=== PATIENT | female | born 1990 | race African-American/Black ===

== ENCOUNTER 2021-06-10 14:19 | Inpatient (IN) ==
[2021-06-10] MEDS ORDERED: VANCOMYCIN INJ 1,000 MG in SODIUM CHLORIDE 0.9% 250 ML IV STA (15:40)
[2021-06-10] MEDS ORDERED: KETOROLAC 30 MG/1 ML VIAL IV STA (15:40)
[2021-06-10] MEDS ORDERED: VANCOMYCIN INJ 1,000 MG in SODIUM CHLORIDE 0.9% 100 ML IV STA (15:50)
[2021-06-10 16:30] LABS: Basophils # 0.1 10*3/uL (0.0-0.2); Basophils % 0.6 % (0.0-0.8); Eosinophils # 0.3 10*3/uL (0.0-0.87); Eosinophils % 3.3 % (0.00-10.9); Hematocrit 43.5 VOL% (35.7-47.0); Hemoglobin 13.9 GM/DL (12.0-16.0); Immature Granulocytes % 0.5 %; Immature Granulocytes Absolute 0.04 #; Lymphocytes # 2.4 10*3/uL (1.4-4.0); Lymphocytes % 27.4 % (21.3-54.2); Mean Corpuscular Volume 98.2 FL (87-102); Mean Platelet Volume 9.9 FL (9.6-12.0); Monocytes % 8.8 % (1.7-12.7); Neutrophils % 59.4 % (38.7-73.9); Platelet Count 424 T/CUMM (130-400); Red Blood Count 4.43 MC/CUMM (3.8-5.5); Red Cell Distribution Width 13.8 % (9.3-17.3); White Blood Count 8.9 T/CUMM (4-12)
[2021-06-10 16:40] LABS: Bilirubin,Urine Negative (Negative); Blood, Urine Negative (Negative); Glucose,Urine (UA) Negative (Negative); Ketones,Urine Negative (Negative); Mucus,Urine Occasional /LPF (Occasional); Nitrite,Urine Negative (Negative); Protein,Urine Negative; Squamous Epithelial Cell,Urine Occasional /HPF (0-10); Urine Appearance CLEAR (Clear); Urine Color Yellow (Yellow); Urine Specific Gravity 1.024 (1.001-1.035)
[2021-06-10 16:49] LABS: Alanine Aminotransferase 61 U/L (13-56); Albumin 3.8 G/DL (3.4-5.0); Alkaline Phosphatase 104 U/L (45-117); Aspartate Amino Transferase 26 U/L (0-37); Bilirubin,Total < 0.39 MG/DL (0.20-1.00); Blood Urea Nitrogen 9 MG/DL (7-18); Calcium 9.6 MG/DL (8.5-10.1); Carbon Dioxide 26 MMOL/L (21-32); Estimated Glom Filtration Rate 106 ML/MIN; Glucose 93 MG/DL (74-106); Potassium 3.6 MMOL/L (3.5-5.1); Sodium 136 MMOL/L (136-145); Total Protein 8.2 G/DL (6.4-8.2)
[2021-06-10 17:26] LABS: Barbiturates Screen,Urine Negative (Negative); Benzodiazepines Screen,Urine Negative (Negative); Cannabinoid Screen,Urine Negative (Negative); Opiate Screen,Urine Negative (Negative); Phencyclidine Screen,Urine Negative (Negative)
[2021-06-10] MEDS ORDERED: ACETAMINOPHEN 325 MG TABLET PO PRN (22:37)
[2021-06-10] MEDS ORDERED: ONDANSETRON 4 MG/2 ML VIAL IV PRN (22:37)
[2021-06-11] MEDS: LACTATED RINGERS 1,000 ML IV SCH ×3 (00:52→13:26)
[2021-06-11] MEDS ORDERED: CLINDAMYCIN INJ 900 MG/50 ML PREMIX IV ONE ×2 (06:00→08:30)
[2021-06-11] MEDS: PANTOPRAZOLE 40 MG TABLET PO SCH (08:20)
[2021-06-11] MEDS ORDERED: BUPIVACAINE MPF 0.25% 30 ML VIAL ONE (10:05)
[2021-06-11] MEDS ORDERED: LIDOCAINE 1%/EPI INJ 20 ML VIAL ONE (10:05)
[2021-06-11] MEDS ORDERED: ONDANSETRON 4 MG/2 ML VIAL ONE (10:16)
[2021-06-11] MEDS ORDERED: MIDAZOLAM 2 MG/2 ML VIAL ONE (10:16)
[2021-06-11] MEDS ORDERED: fentaNYL 100 MCG/2 ML VIAL ONE (10:16)
[2021-06-11] MEDS ORDERED: propofoL 200 MG/20 ML VIAL IV ONE ×2 (10:16→11:04)
[2021-06-11] MEDS ORDERED: LIDOCAINE 2% 5 ML VIAL ONE (10:16)
[2021-06-11] MEDS ORDERED: SEVOFLURANE 1 UNIT/15 MINUTE INH ONE (11:18)
[2021-06-11] MEDS ORDERED: DEXAMETHASONE 4 MG/1 ML VIAL ONE (11:18)
[2021-06-11] MEDS ORDERED: PHENYLEPHRINE 1 MG/10 ML SYRINGE IV ONE (11:18)
[2021-06-11] MEDS: KETOROLAC 30 MG/1 ML VIAL IV SCH ×3 (12:56→22:15)
[2021-06-11] MEDS: SULFAMETHOX/TRIMETHOPRIM 800-160 MG TABLET PO SCH ×2 (17:19→21:21)
[2021-06-11] MEDS: BENZONATATE 100 MG CAPSULE PO SCH ×2 (17:19→21:21)
[2021-06-11] MEDS: ENOXAPARIN 40 MG/0.4 ML SYRINGE SUBCUT SCH (21:20)
[2021-06-11] MEDS: traZODone 50 MG TABLET PO SCH (21:21)
[2021-06-11] MEDS: HYDROmorphone 2 MG/1 ML VIAL IV PRN (21:24)
[2021-06-12] MEDS: HYDROmorphone 2 MG/1 ML VIAL IV PRN ×3 (02:48→21:11)
[2021-06-12] MEDS: KETOROLAC 30 MG/1 ML VIAL IV SCH ×4 (03:56→21:01)
[2021-06-12] MEDS: LORATADINE 10 MG TABLET PO SCH (09:39)
[2021-06-12] MEDS: PANTOPRAZOLE 40 MG TABLET PO SCH (09:39)
[2021-06-12] MEDS: BENZONATATE 100 MG CAPSULE PO SCH ×3 (09:40→21:01)
[2021-06-12] MEDS: SULFAMETHOX/TRIMETHOPRIM 800-160 MG TABLET PO SCH ×2 (09:40→21:01)
[2021-06-12] MEDS: SERTRALINE 50 MG TABLET PO SCH (10:30)
[2021-06-12] MEDS: busPIRone 10 MG TABLET PO SCH ×3 (10:30→21:01)
[2021-06-12] MEDS: ENOXAPARIN 40 MG/0.4 ML SYRINGE SUBCUT SCH (21:01)
[2021-06-12] MEDS: traZODone 50 MG TABLET PO SCH (21:01)
[2021-06-13] MEDS: HYDROmorphone 2 MG/1 ML VIAL IV PRN ×4 (00:55→20:56)
[2021-06-13] MEDS: KETOROLAC 30 MG/1 ML VIAL IV SCH ×4 (02:37→21:50)
[2021-06-13] MEDS: BENZONATATE 100 MG CAPSULE PO SCH ×3 (09:09→20:51)
[2021-06-13] MEDS: busPIRone 10 MG TABLET PO SCH ×3 (09:10→20:51)
[2021-06-13] MEDS: LORATADINE 10 MG TABLET PO SCH (09:10)
[2021-06-13] MEDS: PANTOPRAZOLE 40 MG TABLET PO SCH (09:10)
[2021-06-13] MEDS: SERTRALINE 50 MG TABLET PO SCH (09:10)
[2021-06-13] MEDS: SULFAMETHOX/TRIMETHOPRIM 800-160 MG TABLET PO SCH (09:11)
[2021-06-13] MEDS ORDERED: HYDROmorphone 2 MG/1 ML VIAL IV ONE (10:02)
[2021-06-13] MEDS: PIPERACILLIN/TAZOBACTAM 3,375 MG in SODIUM CHLORIDE 0.9% 100 ML IV SCH ×2 (11:14→21:43)
[2021-06-13] MEDS: VANCOMYCIN INJ 1,000 MG in SODIUM CHLORIDE 0.9% 250 ML IV SCH (18:05)
[2021-06-13] MEDS: traZODone 50 MG TABLET PO SCH (20:51)
[2021-06-13] MEDS: ENOXAPARIN 40 MG/0.4 ML SYRINGE SUBCUT SCH (20:52)
[2021-06-14] MEDS: HYDROmorphone 2 MG/1 ML VIAL IV PRN ×8 (01:35→22:06)
[2021-06-14] MEDS: PIPERACILLIN/TAZOBACTAM 3,375 MG in SODIUM CHLORIDE 0.9% 100 ML IV SCH ×3 (01:51→22:13)
[2021-06-14] MEDS: KETOROLAC 30 MG/1 ML VIAL IV SCH ×3 (03:28→17:50)
[2021-06-14] MEDS: VANCOMYCIN INJ 1,000 MG in SODIUM CHLORIDE 0.9% 250 ML IV SCH ×2 (05:49→17:48)
[2021-06-14 06:31] LABS: Basophils % 0.6 % (0.0-0.8); Eosinophils # 0.3 10*3/uL (0.0-0.87); Eosinophils % 4.6 % (0.00-10.9); Hematocrit 37.6 VOL% (35.7-47.0); Immature Granulocytes % 0.6 %; Immature Granulocytes Absolute 0.04 #; Lymphocytes # 2.3 10*3/uL (1.4-4.0); Lymphocytes % 36.1 % (21.3-54.2); Mean Corpuscular HGB Conc 31.1 GM/DL (32-36); Mean Corpuscular Volume 100.3 FL (87-102); Mean Platelet Volume 10.7 FL (9.6-12.0); Monocytes % 10.3 % (1.7-12.7); Neutrophils % 47.8 % (38.7-73.9); Platelet Count 374 T/CUMM (130-400); Red Blood Count 3.75 MC/CUMM (3.8-5.5); Red Cell Distribution Width 13.6 % (9.3-17.3); White Blood Count 6.3 T/CUMM (4-12)
[2021-06-14 06:35] LABS: Hemoglobin 11.7 GM/DL (12.0-16.0)
[2021-06-14 06:41] LABS: Calcium 8.5 MG/DL (8.5-10.1); Osmolality,Calculated 274.5 MOS/KG (273-304); Potassium 4.1 MMOL/L (3.5-5.1)
[2021-06-14] MEDS: busPIRone 10 MG TABLET PO SCH ×4 (09:00→22:02)
[2021-06-14] MEDS ORDERED: BUPIVACAINE MPF 0.25% 30 ML VIAL ONE (10:09)
[2021-06-14] MEDS ORDERED: LIDOCAINE 1%/EPI INJ 20 ML VIAL ONE (10:09)
[2021-06-14] MEDS ORDERED: fentaNYL 100 MCG/2 ML VIAL ONE (10:17)
[2021-06-14] MEDS ORDERED: LIDOCAINE 2% 5 ML VIAL ONE (10:17)
[2021-06-14] MEDS ORDERED: MIDAZOLAM 2 MG/2 ML VIAL ONE (10:17)
[2021-06-14] MEDS ORDERED: propofoL 200 MG/20 ML VIAL IV ONE (10:17)
[2021-06-14] MEDS ORDERED: DEXAMETHASONE 4 MG/1 ML VIAL ONE (10:32)
[2021-06-14] MEDS ORDERED: SEVOFLURANE 1 UNIT/15 MINUTE INH ONE (10:32)
[2021-06-14] MEDS ORDERED: ONDANSETRON 4 MG/2 ML VIAL ONE (10:32)
[2021-06-14] MEDS ORDERED: ONDANSETRON 4 MG/2 ML VIAL IV PRN (11:03)
[2021-06-14] MEDS: PANTOPRAZOLE 40 MG TABLET PO SCH (12:11)
[2021-06-14] MEDS: LORATADINE 10 MG TABLET PO SCH (12:11)
[2021-06-14] MEDS: SERTRALINE 50 MG TABLET PO SCH (12:11)
[2021-06-14] MEDS: BENZONATATE 100 MG CAPSULE PO SCH ×3 (12:11→22:02)
[2021-06-14] MEDS: ENOXAPARIN 40 MG/0.4 ML SYRINGE SUBCUT SCH (22:02)
[2021-06-14] MEDS: traZODone 50 MG TABLET PO SCH (22:02)
[2021-06-15] MEDS: KETOROLAC 30 MG/1 ML VIAL IV SCH ×4 (00:34→17:00)
[2021-06-15] MEDS: HYDROmorphone 2 MG/1 ML VIAL IV PRN ×2 (03:52→09:17)
[2021-06-15] MEDS: VANCOMYCIN INJ 1,000 MG in SODIUM CHLORIDE 0.9% 250 ML IV SCH (04:16)
[2021-06-15] MEDS: PIPERACILLIN/TAZOBACTAM 3,375 MG in SODIUM CHLORIDE 0.9% 100 ML IV SCH (06:14)
[2021-06-15] MEDS ORDERED: MAGNESIUM HYDROXIDE SUSP 30 ML UDCUP PO PRN (07:10)
[2021-06-15] MEDS ORDERED: DOCUSATE SODIUM 100 MG CAPSULE PO PRN (07:11)
[2021-06-15] MEDS: SULFAMETHOX/TRIMETHOPRIM 800-160 MG TABLET PO SCH ×2 (08:04→21:44)
[2021-06-15] MEDS: PANTOPRAZOLE 40 MG TABLET PO SCH (08:05)
[2021-06-15] MEDS: BENZONATATE 100 MG CAPSULE PO SCH ×3 (08:05→21:44)
[2021-06-15] MEDS: LORATADINE 10 MG TABLET PO SCH (08:05)
[2021-06-15] MEDS: SERTRALINE 50 MG TABLET PO SCH (08:05)
[2021-06-15] MEDS: busPIRone 10 MG TABLET PO SCH ×3 (08:05→21:44)
[2021-06-15] MEDS ORDERED: BISACODYL 5 MG TABLET PO ONE (15:27)
[2021-06-15] MEDS ORDERED: POLYETHYLENE GLYCOL POWDER 17 GM PACK PO PRN (15:28)
[2021-06-15] MEDS: ENOXAPARIN 40 MG/0.4 ML SYRINGE SUBCUT SCH (21:44)
[2021-06-15] MEDS: traZODone 50 MG TABLET PO SCH (21:44)
[2021-06-16] MEDS: KETOROLAC 30 MG/1 ML VIAL IV SCH ×2 (00:51→06:07)
[2021-06-16] MEDS: busPIRone 10 MG TABLET PO SCH (08:07)
[2021-06-16] MEDS: LORATADINE 10 MG TABLET PO SCH (08:07)
[2021-06-16] MEDS: SULFAMETHOX/TRIMETHOPRIM 800-160 MG TABLET PO SCH (08:07)
[2021-06-16] MEDS: BENZONATATE 100 MG CAPSULE PO SCH (08:07)
[2021-06-16] MEDS: PANTOPRAZOLE 40 MG TABLET PO SCH (08:07)
[2021-06-16] MEDS: SERTRALINE 50 MG TABLET PO SCH (08:07)
[2021-06-16 08:35] VITALS: BP 145/99
== END 2021-06-16 09:01 | disposition home or self-care (01) | DRG 385 ==
LOC: N.ED 14:19 → N.EDINP 19:08 → N.TELES 22:25
PROVIDERS: ADMIT Surgery; ATTEND Surgery

== ENCOUNTER 2021-06-21 19:57 | Inpatient (IN) ==
[2021-06-21] MEDS ORDERED: ONDANSETRON 4 MG/2 ML VIAL IV ONE (23:09)
[2021-06-21] MEDS ORDERED: MORPHINE 2 MG/1 ML SYRINGE IV STA (23:09)
[2021-06-21] MEDS ORDERED: KETOROLAC 30 MG/1 ML VIAL IV STA (23:13)
[2021-06-21] MEDS ORDERED: VANCOMYCIN INJ 1,000 MG in SODIUM CHLORIDE 0.9% 250 ML IV SCH (23:30)
[2021-06-22 00:06] LABS: Alanine Aminotransferase 36 U/L (13-56); Albumin 4.3 G/DL (3.4-5.0); Alkaline Phosphatase 100 U/L (45-117); Aspartate Amino Transferase 16 U/L (0-37); Bilirubin,Total < 0.39 MG/DL (0.20-1.00); Blood Urea Nitrogen 14 MG/DL (7-18); Carbon Dioxide 23 MMOL/L (21-32); Estimated Glom Filtration Rate 109 ML/MIN; Glucose 90 MG/DL (74-106); Osmolality,Calculated 268.2 MOS/KG (273-304); Potassium 4.1 MMOL/L (3.5-5.1); Sodium 134 MMOL/L (136-145); Total Protein 8.7 G/DL (6.4-8.2)
[2021-06-22 00:29] LABS: Basophils % 0.4 % (0.0-0.8); Eosinophils # 0.3 10*3/uL (0.0-0.87); Eosinophils % 3.3 % (0.00-10.9); Hematocrit 42.1 VOL% (35.7-47.0); Hemoglobin 13.4 GM/DL (12.0-16.0); Immature Granulocytes % 0.9 %; Immature Granulocytes Absolute 0.08 #; Lymphocytes # 3.5 10*3/uL (1.4-4.0); Lymphocytes % 38.9 % (21.3-54.2); Mean Corpuscular HGB Conc 31.8 GM/DL (32-36); Mean Corpuscular Volume 96.6 FL (87-102); Mean Platelet Volume 10.3 FL (9.6-12.0); Monocytes % 9.3 % (1.7-12.7); Neutrophils % 47.2 % (38.7-73.9); Platelet Count 600 T/CUMM (130-400); Red Blood Count 4.36 MC/CUMM (3.8-5.5); Red Cell Distribution Width 13.4 % (9.3-17.3); White Blood Count 9.1 T/CUMM (4-12)
[2021-06-22] MEDS ORDERED: ACETAMINOPHEN 325 MG TABLET PO PRN (00:37)
[2021-06-22] MEDS ORDERED: ONDANSETRON 4 MG/2 ML VIAL IV PRN (00:37)
[2021-06-22] MEDS: KETOROLAC 10 MG TABLET PO PRN ×3 (02:01→16:19)
[2021-06-22] MEDS: SODIUM CHLORIDE 0.45% 1,000 ML IV SCH ×2 (02:33→08:05)
[2021-06-22 06:03] LABS: Basophils % 0.5 % (0.0-0.8); Eosinophils # 0.3 10*3/uL (0.0-0.87); Hematocrit 38.7 VOL% (35.7-47.0); Hemoglobin 12.5 GM/DL (12.0-16.0); Immature Granulocytes % 0.9 %; Immature Granulocytes Absolute 0.07 #; Lymphocytes # 2.5 10*3/uL (1.4-4.0); Lymphocytes % 30.9 % (21.3-54.2); Mean Corpuscular HGB Conc 32.3 GM/DL (32-36); Mean Corpuscular Volume 95.3 FL (87-102); Mean Platelet Volume 10.2 FL (9.6-12.0); Monocytes % 11.5 % (1.7-12.7); Neutrophils % 52.2 % (38.7-73.9); Platelet Count 564 T/CUMM (130-400); Red Blood Count 4.06 MC/CUMM (3.8-5.5); Red Cell Distribution Width 13.3 % (9.3-17.3); White Blood Count 7.9 T/CUMM (4-12)
[2021-06-22 06:21] LABS: Albumin 3.6 G/DL (3.4-5.0); Bilirubin,Total 0.4 MG/DL (0.20-1.00); Calcium 9.3 MG/DL (8.5-10.1); Osmolality,Calculated 268.2 MOS/KG (273-304); Potassium 3.9 MMOL/L (3.5-5.1); Total Protein 7.6 G/DL (6.4-8.2)
[2021-06-22] MEDS: PANTOPRAZOLE 40 MG TABLET PO SCH (08:02)
[2021-06-22] MEDS ORDERED: VANCOMYCIN INJ 1,000 MG in SODIUM CHLORIDE 0.9% 250 ML IV SCH (12:00)
[2021-06-22] MEDS: CIPROFLOXACIN 500 MG TABLET PO SCH ×2 (12:02→20:38)
[2021-06-22] MEDS: metroNIDAZOLE 500 MG TABLET PO SCH ×2 (12:03→16:17)
[2021-06-22] MEDS: PREGABALIN 50 MG CAPSULE PO SCH ×3 (13:39→20:38)
[2021-06-22] MEDS ORDERED: MELATONIN 3 MG TABLET PO PRN (20:09)
[2021-06-22] MEDS: busPIRone 10 MG TABLET PO SCH (20:38)
[2021-06-23] MEDS: KETOROLAC 10 MG TABLET PO PRN (05:59)
[2021-06-23 08:16] VITALS: BP 107/72
[2021-06-23] MEDS: CIPROFLOXACIN 500 MG TABLET PO SCH (08:50)
[2021-06-23] MEDS: metroNIDAZOLE 500 MG TABLET PO SCH (08:50)
[2021-06-23] MEDS: busPIRone 10 MG TABLET PO SCH (08:50)
[2021-06-23] MEDS: PREGABALIN 50 MG CAPSULE PO SCH (08:51)
[2021-06-23] MEDS: PANTOPRAZOLE 40 MG TABLET PO SCH (08:51)
[2021-06-23] MEDS ORDERED: SERTRALINE 50 MG TABLET PO SCH (09:00)
== END 2021-06-23 12:19 | disposition home or self-care (01) | DRG 721 ==
LOC: N.EDINP 19:57 → N.ED 19:57 → OBSVTOIN 06-22 00:35 → N.3E 06-22 01:22
PROVIDERS: ADMIT Surgery; ATTEND Surgery